=== PATIENT | male | born 1995 | race African-American/Black ===

== ENCOUNTER 2019-09-13 23:38 | Emergency (ER) | payer SELFPAY ==
[2019-09-14] MEDS ORDERED: HYDROCODONE/APAP 5/325 MG TAB ONE (00:14)
[2019-09-14] MEDS ORDERED: CLINDAMYCIN HCL 150 MG CAP ONE (00:14)
--- NOTE | 2019-09-14 00:28 | EDPHYS ---
Physician Documentation [facility] Name: Zac Ramirez Age: 24 yrs Sex: Male : 1995 Arrival Date: 09/13/2019 Time: 23:41 Bed 20 Private MD: ED Physician Bowen Sheikh HPI: 09/14 00:13 This 24 yrs old Black Male presents to ER via Ambulatory with complaints of Dental Pain.snw 00:13 Onset: The symptoms/episode began/occurred suddenly, yesterday. Associated signs and snw symptoms: The patient has no apparent associated signs or symptoms. Modifying factors: The patient symptoms are alleviated by nothing, the patient symptoms are aggravated by drinking. It is unknown whether or not the patient has had similar symptoms in the past. The patient has not recently seen a physician. Pt states the areas have been broken for a while but not painful until yest. Historical: - Allergies: 00:07 PENICILLINS; ea 00:07 Amoxicillin; ea - Home Meds: 00:07 None [Active]; ea - PMHx: 00:07 None; ea - PSHx: 00:07 None; ea - Immunization history:: Adult Immunizations up to date. - Social history:: Smoking status: Patient uses tobacco products, smokes one pack cigarettes per day. - Ebola Screening: : No symptoms or risks identified at this time. ROS: 00:13 Constitutional: Negative for fever, chills, and weight loss, Eyes: Negative for injury, snw pain, redness, and discharge, Neck: Negative for injury, pain, and swelling, Cardiovascular: Negative for chest pain, palpitations, and edema, Respiratory: Negative for shortness of breath, cough, wheezing, and pleuritic chest pain, Abdomen/GI: Negative for abdominal pain, nausea, vomiting, diarrhea, and constipation, Back: Negative for injury and pain, : Negative for injury, bleeding, discharge, and swelling, MS/Extremity: Negative for injury and deformity, Skin: Negative for injury, rash, and discoloration, Neuro: Negative for headache, weakness, numbness, tingling, and seizure. 00:13 ENT: Positive for Teeth pain Exam: 00:12 Constitutional: This is a well developed, well nourished patient who is awake, alert, snw and in no acute distress. Head/Face: Normocephalic, atraumatic. Eyes: Pupils equal round and reactive to light, extra-ocular motions intact. Lids and lashes normal. Conjunctiva and sclera are non-icteric and not injected. Cornea within normal limits. Periorbital areas with no swelling, redness, or edema. Neck: Trachea midline, no thyromegaly or masses palpated, and no cervical lymphadenopathy. Supple, full range of motion without nuchal rigidity, or vertebral point tenderness. No Meningismus. Chest/axilla: Normal chest wall appearance and motion. Nontender with no deformity. No lesions are appreciated. Cardiovascular: Regular rate and rhythm with a normal S1 and S2. No gallops, murmurs, or rubs. Normal PMI, no JVD. No pulse deficits. Respiratory: Lungs have equal breath sounds bilaterally, clear to auscultation and percussion. No rales, rhonchi or wheezes noted. No increased work of breathing, no retractions or nasal flaring. Abdomen/GI: Soft, non-tender, with normal bowel sounds. No distension or tympany. No guarding or rebound. No evidence of tenderness throughout. Back: No spinal tenderness. No costovertebral tenderness. Full range of motion. Skin: Warm, dry with normal turgor. Normal color with no rashes, no lesions, and no evidence of cellulitis. MS/ Extremity: Pulses equal, no cyanosis. Neurovascular intact. Full, normal range of motion. Neuro: Awake and alert, GCS 15, oriented to person, place, time, and situation. Cranial nerves II-XII grossly intact. Motor strength 5/5 in all extremities. Sensory grossly intact. Cerebellar exam normal. Normal gait. Psych: Awake, alert, with orientation to person, place and time. Behavior, mood, and affect are within normal limits. 00:12 ENT: TM's: are normal, Nose: is normal, Mouth: is normal, Dental exam: fractured teeth are noted, specifically the upper left first molar (#14) and lower left first molar (#19), pain, that is moderate. Vital Signs: 00:07 BP 126 / 69; Pulse 62; Resp 18; Temp 98.3; Pulse Ox 99% ; Weight 86.18 kg; Height 5 ft. ea 9 in. (175.26 cm); Pain 8/10; 00:07 Body Mass Index 28.06 (86.18 kg, 175.26 cm) ea MDM: 09/13 23:50 Patient medically screened. snw 09/14 00:29 Data reviewed: vital signs, nurses notes. Data interpreted: Pulse oximetry: on room air snw is 99 %. Interpretation: normal. Counseling: I had a detailed discussion with the patient and/or guardian regarding: the historical points, exam findings, and any diagnostic results supporting the discharge/admit diagnosis, the need for outpatient follow up, to return to the emergency department if symptoms worsen or persist or if there are any questions or concerns that arise at home. Special discussion: Based on the history and exam findings, there is no indication for further emergent testing or inpatient evaluation. I discussed with the patient/guardian the need to see a dentist for further evaluation of the symptoms. I discussed with the patient/guardian the need to see the primary care provider for further evaluation of the symptoms. Administered Medications: 00:14 Not Given (Allergy): Amoxicillin 500 mg PO once 00:14 Drug: Clindamycin 300 mg Route: PO; 00:46 Follow up: Response: No adverse reaction 00:15 Drug: [place] 5 mg-325 mg 1 tabs Route: PO; 00:40 Follow up: Response: No adverse reaction 00:46 Follow up: Response: No adverse reaction; Pain is decreased; RASS: Alert and Calm (0) Disposition: 08:45 Co-signature as Attending Physician, Bowen Sheikh MD I agree with the assessment and wa plan of care. Disposition: 09/14/19 00:27 Discharged to Home. Impression: Dental caries, Dentalgia. - Condition is Stable. - Discharge Instructions: Dental Caries, Adult, Dental Pain, Diet and Dental Disease, Preventive Dental Care, Adult. - Prescriptions for Clindamycin HCl 300 mg Oral Capsule - take 1 capsule by ORAL route every 6 hours for 10 days; 40 capsule. Diclofenac Sodium 75 mg Oral Tablet Sustained Release - take 1 tablet by ORAL route 2 times per day; 30 tablet. - Work release form, Medication Reconciliation Form, Thank You Letter, Antibiotic Education, Prescription Opioid Use form. - Follow up: Private Physician; When: 1 - 2 days; Reason: Recheck today's complaints, Continuance of care, Re-evaluation by your physician. Follow up: Emergency Department; When: As needed; Reason: Worsening of condition. Signatures: Sabra Villeda, LEVAR-C EP TECH-Csnw Krystle Huerta RN RN ea Habalo, Winsy wh Appiah, William, MD MD wa Corrections: (The following items were deleted from the chart) 00:46 00:27 09/14/2019 00:27 Discharged to Home. Impression: Dental caries; Dentalgia. Condition is Stable. Forms are Medication Reconciliation Form, Thank You Letter, Antibiotic Education, Prescription Opioid Use. Follow up: Private Physician; When: 1 - 2 days; Reason: Recheck today's complaints, Continuance of care, Re-evaluation by your physician. Follow up: Emergency Department; When: As needed; Reason: Worsening of condition. snw
--- NOTE | 2019-09-14 00:28 | ER ---
Nurse's Notes [facility] Name: Zac Ramirez Age: 24 yrs Sex: Male : 1995 Arrival Date: 09/13/2019 Time: 23:41 Bed 20 Private MD: Diagnosis: Dental caries;Dentalgia Presentation: 09/14 00:04 Presenting complaint: Patient states: Reports the top and bottom teeth on the left side ea are hurting. Pt reports they have been hurting for the past two years on and off and today the pain was not resolved with Advil. Transition of care: patient was not received from another setting of care. Onset of symptoms was September 14, 2019. Risk Assessment: Do you want to hurt yourself or someone else? Patient reports no desire to harm self or others. Initial Sepsis Screen: Does the patient meet any 2 criteria? No. Patient's initial sepsis screen is negative. Does the patient have a suspected source of infection? No. Patient's initial sepsis screen is negative. Care prior to arrival: None. 00:04 Method Of Arrival: Ambulatory ea 00:04 Acuity: RHONDA 5 ea Historical: - Allergies: 00:07 PENICILLINS; ea 00:07 Amoxicillin; ea - Home Meds: 00:07 None [Active]; ea - PMHx: 00:07 None; ea - PSHx: 00:07 None; ea - Immunization history:: Adult Immunizations up to date. - Social history:: Smoking status: Patient uses tobacco products, smokes one pack cigarettes per day. - Ebola Screening: : No symptoms or risks identified at this time. Screenin:05 Abuse screen: Denies threats or abuse. Nutritional screening: No deficits noted. ea Tuberculosis screening: No symptoms or risk factors identified. Fall Risk None identified. Assessment: 00:10 General: Appears in no apparent distress. Behavior is calm, cooperative, appropriate wh for age. Pain: Complains of pain in Left jaw Pain does not radiate. Pain currently is 8 out of 10 on a pain scale. Quality of pain is described as aching. Neuro: Level of Consciousness is awake, alert, obeys commands, Oriented to person, place, time, situation, Appropriate for age. Cardiovascular: Capillary refill < 3 seconds. Respiratory: Airway is patent Respiratory effort is even, unlabored, Respiratory pattern is regular, symmetrical. GI: Abdomen is flat, non-distended. : No signs and/or symptoms were reported regarding the genitourinary system. EENT: Dental Carries. Derm: Skin is intact, is healthy with good turgor, Skin is pink, warm \T\ dry. normal. Musculoskeletal: Circulation, motion, and sensation intact. 00:41 Reassessment: Patient and/or family updated on plan of care and expected duration. Pain ea level reassessed. Patient is alert, oriented x 3, equal unlabored respirations, skin warm/dry/pink. Discharge instruction given to patient, verbalized the understanding of instruction. Pt left ED ambulatory, pt tolerating well. Vital Signs: 00:07 BP 126 / 69; Pulse 62; Resp 18; Temp 98.3; Pulse Ox 99% ; Weight 86.18 kg; Height 5 ft. ea 9 in. (175.26 cm); Pain 05/14; 00:07 Body Mass Index 28.06 (86.18 kg, 175.26 cm) ea ED Course: 09/13 23:41 Patient arrived in ED. ds1 23:44 Sabra Villeda F[facility]C [facility]. snw 23:44 Bowen Sheikh MD is Attending Physician. snw 09/14 00:05 Triage completed. ea 00:05 Arm band placed on right wrist. Patient placed in an exam room, on a stretcher, on ea pulse oximetry. 00:08 Patient has correct armband on for positive identification. Call light in reach. Side ea rails up X2. 00:14 Khadar Cline is Primary Nurse. wh 00:43 No provider procedures requiring assistance completed. Patient did not have IV access ea during this emergency room visit. Administered Medications: 00:14 Not Given (Allergy): Amoxicillin 500 mg PO once wh 00:14 Drug: Clindamycin 300 mg Route: PO; 00:46 Follow up: Response: No adverse reaction wh 00:15 Drug: [place] 5 mg-325 mg 1 tabs Route: PO; wh 00:40 Follow up: Response: No adverse reaction ea 00:46 Follow up: Response: No adverse reaction; Pain is decreased; RASS: Alert and Calm (0) Outcome: 00:27 Discharge ordered by . snw 00:42 Discharged to home ambulatory. ea 00:42 Condition: stable 00:42 Discharge instructions given to patient, Instructed on discharge instructions, follow up and referral plans. medication usage, Demonstrated understanding of instructions, follow-up care, medications, Prescriptions given X 2. 00:46 Patient left the ED. Signatures: Sabra Villeda, SEO INTERN-C SEO INTERN-Csnw Elizabeth Centeno ds1 Krystle Huerta, RN RN Khadar Lowery
[2019-09-14 01:11] VITALS: BP 126/69; TEMP 98.3; O2SAT 99
== END 2019-09-14 00:46 | disposition home or self-care (01) ==
LOC: ER 23:38
DX: K02.9 Dental caries, unspecified (principal); F17.210 Nicotine dependence, cigarettes, uncomplicated; Z88.0 Allergy status to penicillin; Z88.1 Allergy status to other antibiotic agents
CPT/HCPCS: 99283

== ENCOUNTER 2020-04-11 03:10 | Emergency (ER) | payer SELFPAY ==
--- NOTE | 2020-04-11 03:35 | ER ---
Nurse's Notes [facility] Name: Zac Ramirez Age: 24 yrs Sex: Male : 1995 Arrival Date: 04/11/2020 Time: 03:10 Bed 7 Private MD: Diagnosis: Dental caries Presentation: 04/11 03:23 Chief complaint: Patient states: Reports tooth pain on the right top and bottom teeth ea that started two days ago. Coronavirus screen: Proceed with normal triage. Ebola Screen: No symptoms or risks identified at this time. Initial Sepsis Screen: Does the patient meet any 2 criteria? No. Patient's initial sepsis screen is negative. Does the patient have a suspected source of infection? No. Patient's initial sepsis screen is negative. Risk Assessment: Do you want to hurt yourself or someone else? Patient reports no desire to harm self or others. Onset of symptoms was April 11, 2020. 03:23 Method Of Arrival: Ambulatory ea 03:23 Acuity: RHONDA 3 ea Triage Assessment: 03:26 General: Appears in no apparent distress. Behavior is appropriate for age. Pain: ea Complains of pain in upper right third molar, upper right second molar, upper right first molar, lower right first molar, lower right second molar and lower right third molar. EENT: Reports pain in right side of head. Historical: - Allergies: 03:27 Amoxicillin; ea 03:27 PENICILLINS; ea - PSHx: 03:27 None; ea - Immunization history:: Adult Immunizations up to date. - Social history:: Smoking status: Patient reports the use of cigarette tobacco products, smokes one-half pack cigarettes per day. Screenin:25 Abuse screen: Denies threats or abuse. Nutritional screening: No deficits noted. ea Tuberculosis screening: No symptoms or risk factors identified. Fall Risk None identified. Vital Signs: 03:23 BP 119 / 68; Pulse 65; Resp 18; Temp 98.6; Pulse Ox 97% ; Weight 80.74 kg; Height 5 ft. ea 9 in. (175.26 cm); 03:23 Body Mass Index 26.29 (80.74 kg, 175.26 cm) ea ED Course: 03:10 Patient arrived in ED. ds1 03:14 Juan Vera MD is Attending Physician. tw4 03:23 Huerta, Krystle, RN is Primary Nurse. ea 03:25 Triage completed. ea 03:25 Patient has correct armband on for positive identification. Call light in reach. ea 03:26 Arm band placed on right wrist. Patient placed in an exam room, on a stretcher, on ea pulse oximetry. 03:27 No provider procedures requiring assistance completed. Patient did not have IV access ea during this emergency room visit. Administered Medications: No medications were administered Outcome: 03:27 Medical screen evaluation completed per provider. Patient declined treatment. ea 03:27 Condition: stable 03:27 Following a medical screening exam, the patient was provided information regarding alternative care sites and resources available per registration personnel. 03:34 Discharge ordered by . tw4 03:34 Patient left the ED. ea Signatures: Elizabeth Centeno ds1 Krystle Huerta, CYNDI RN Juan Brown MD MD tw4
--- NOTE | 2020-04-11 03:35 | EDPHYS ---
Physician Documentation [facility] Name: Zac Ramirez Age: 24 yrs Sex: Male : 1995 Arrival Date: 04/11/2020 Time: 03:10 Bed 7 Private MD: ED Physician Juan Vera HPI: 04/11 06:16 This 24 yrs old Black Male presents to ER via Ambulatory with complaints of Toothache. tw4 06:16 The patient presents with pain. The problem is located in the upper right third molar, tw4 upper right second molar, lower right first molar and lower right second molar. 06:16 Onset: The symptoms/episode began/occurred 2 day(s) ago. Duration: The symptoms are tw4 continuous. Modifying factors: The symptoms are alleviated by nothing, the symptoms are aggravated by nothing. Severity of symptoms: At their worst the symptoms were moderate, in the emergency department the symptoms. The patient has not experienced similar symptoms in the past. Historical: - Allergies: 03:27 Amoxicillin; ea 03:27 PENICILLINS; ea - PSHx: 03:27 None; ea - Immunization history:: Adult Immunizations up to date. - Social history:: Smoking status: Patient reports the use of cigarette tobacco products, smokes one-half pack cigarettes per day. ROS: 06:16 Constitutional: Negative for fever, chills, and weight loss, Eyes: Negative for injury, tw4 pain, redness, and discharge. 06:16 Cardiovascular: Negative for chest pain, palpitations, and edema, Respiratory: Negative for shortness of breath, cough, wheezing, and pleuritic chest pain, Abdomen/GI: Negative for abdominal pain, nausea, vomiting, diarrhea, and constipation, Back: Negative for injury and pain, MS/Extremity: Negative for injury and deformity, Skin: Negative for injury, rash, and discoloration, Neuro: Negative for headache, weakness, numbness, tingling, and seizure. 06:16 ENT: Positive for dental pain, Negative for drainage from ear(s), ear pain, foreign body sensation, hearing loss. Exam: 06:16 Constitutional: This is a well developed, well nourished patient who is awake, alert, tw4 and in no acute distress. Head/Face: Normocephalic, atraumatic. 06:16 ENT: Dental exam: fractured teeth are noted, specifically the lower right first molar (#30) and lower right second molar (#31), missing teeth, specifically the lower right third molar (#32), pain, specifically in the upper right third molar (#1), upper right second molar (#2), lower right first molar (#30) and lower right second molar (#31). Vital Signs: 03:23 BP 119 / 68; Pulse 65; Resp 18; Temp 98.6; Pulse Ox 97% ; Weight 80.74 kg; Height 5 ft. ea 9 in. (175.26 cm); 03:23 Body Mass Index 26.29 (80.74 kg, 175.26 cm) ea MDM: 03:14 Patient medically screened. tw4 03:34 Data reviewed: vital signs, nurses notes. Medical screen evaluation completed. EMTALA tw4 emergency medical condition absent. Administered Medications: No medications were administered Disposition: 04/11/20 03:34 Discharged to Home. Impression: Dental caries. - Condition is Stable. - Discharge Instructions: Dental Pain. - Medication Reconciliation Form, Thank You Letter, Antibiotic Education, Prescription Opioid Use form. - Follow up: Private Physician; When: Upon discharge from the Emergency Department; Reason: Recheck today's complaints, Continuance of care, Re-evaluation by your physician. - Problem is new. - Symptoms are unchanged. Signatures: Krystle Huerta, RN RN Juan Brown MD MD tw4 Corrections: (The following items were deleted from the chart) 03:34 03:34 04/11/2020 03:34 Discharged to Home. Impression: Dental caries. Condition is ea Stable. Forms are Medication Reconciliation Form, Thank You Letter, Antibiotic Education, Prescription Opioid Use. Follow up: Private Physician; When: Upon discharge from the Emergency Department; Reason: Recheck today's complaints, Continuance of care, Re-evaluation by your physician. Problem is new. Symptoms are unchanged. tw4
[2020-04-11 03:57] VITALS: BP 119/68; TEMP 98.6; O2SAT 97
== END 2020-04-11 03:34 | disposition home or self-care (01) ==
LOC: ER 03:10
DX: K02.9 Dental caries, unspecified (principal); F17.210 Nicotine dependence, cigarettes, uncomplicated; Z88.0 Allergy status to penicillin; Z88.1 Allergy status to other antibiotic agents
CPT/HCPCS: 99282

== ENCOUNTER 2022-01-11 01:34 | Emergency (ER) | payer SELFPAY ==
--- NOTE | 2022-01-11 02:13 | ER ---
Nurse's Notes [facility] Name: Zac Ramirez Age: 26 yrs Sex: Male : 1995 Arrival Date: 01/11/2022 Time: 01:38 Bed 19 Private MD: Diagnosis: rhinorrhea;sore throat;cough Presentation: 01/11 01:45 Chief complaint: Patient states: Pt c/o nasal congestion, sneezing, and cough, states ll3 "I can't breath through my nose and I'm scared to sleep". Coronavirus screen: Vaccine status: Patient reports being unvaccinated. congestion, cough unrelated to allergies. Ebola Screen: No symptoms or risks identified at this time. Initial Sepsis Screen: Does the patient meet any 2 criteria? No. Patient's initial sepsis screen is negative. Does the patient have a suspected source of infection? No. Patient's initial sepsis screen is negative. Risk Assessment: Do you want to hurt yourself or someone else? Patient reports no desire to harm self or others. Onset of symptoms was January 08, 2022. Care prior to arrival: Medication(s) given: Benedryl, states it didn't help. 01:45 Method Of Arrival: Ambulatory ll3 01:45 Acuity: RHONDA 4 ll3 Triage Assessment: 01:49 General: Appears uncomfortable, Behavior is calm, cooperative. Pain: Denies pain. ll3 Neuro: Level of Consciousness is awake, alert, obeys commands, Oriented to person, place, time, situation. Cardiovascular: Patient's skin is warm and dry. Respiratory: Respiratory effort is even, unlabored, Respiratory pattern is regular, symmetrical. Derm: Skin is pink, warm \\T\\ dry. Historical: - Allergies: 01:49 Amoxicillin; ll3 01:49 PENICILLINS; ll3 - Home Meds: 01:49 None [Active]; ll3 - PMHx: 01:49 None; ll3 - PSHx: 01:49 None; ll3 - Immunization history:: Client reports having NOT received the Covid vaccine. - Social history:: Smoking status: Patient reports the use of cigarette tobacco products, Reported history of juuling and/or vaping. Screenin:13 Abuse screen: Denies threats or abuse. Nutritional screening: No deficits noted. ke1 Tuberculosis screening: No symptoms or risk factors identified. Fall Risk None identified. Vital Signs: 01:45 BP 147 / 87; Pulse 64; Temp 97.6(TE); Pulse Ox 98% on R/A; Weight 83.01 kg (R); Height ll3 5 ft. 9 in. (175.26 cm) (R); 01:45 Body Mass Index 27.02 (83.01 kg, 175.26 cm) ll3 ED Course: 01:38 Patient arrived in ED. kz 01:49 Puneet Isidro DO is Attending Physician. ms3 01:49 Triage completed. ll3 01:49 Arm band placed on Patient placed in an exam room, on a stretcher, on pulse oximetry. ll3 01:49 Bed in low position. ke1 01:59 Arlene Ponce, CYNDI is Primary Nurse. ke1 02:12 Jhonathan Trimble MD is Referral Physician. ms3 02:13 No provider procedures requiring assistance completed. Patient did not have IV access ke1 during this emergency room visit. Administered Medications: No medications were administered Outcome: 02:13 Discharge ordered by . ms3 02:13 Discharged to home ambulatory. ke1 02:13 Condition: good 02:13 Discharge instructions given to patient. 02:22 Patient left the ED. ll3 Signatures: Puneet Isidro DO DO ms3 Shaylee Norman, RN RN ll3 Arlene Ponce RN RN ke1 Myriam Todd k
[2022-01-11 08:52] VITALS: BP 147/87; TEMP 97.6; O2SAT 98
--- NOTE | 2022-01-12 06:14 | EDPHYS ---
Physician Documentation [facility] Name: Zac Ramirez Age: 26 yrs Sex: Male : 1995 Arrival Date: 01/11/2022 Time: 01:38 Bed 19 Private MD: ED Physician Puneet Isidro HPI: 01/11 02:57 This 26 yrs old Black Male presents to ER via Ambulatory with complaints of Nasal ms3 Congestion, Cough. 02:57 The patient or guardian reports Congestion. Onset: The symptoms/episode began/occurred ms3 4 day(s) ago. Severity of symptoms: At their worst the symptoms were moderate, in the emergency department the symptoms have resolved. Modifying factors: The symptoms are alleviated by nothing, the symptoms are aggravated by Laying down. Associated signs and symptoms: Pertinent positives: rhinorrhea, sore throat. 26-year-old male with no past medical history presents for congestion that has been ongoing for 4 days. Patient denies pain. Patient states his symptoms become worse when laying flat. Patient states he took a cough medication and Benadryl without relief. Patient denies alleviating factors. Patient denies fevers, chills, nausea, vomiting. Historical: - Allergies: 01:49 Amoxicillin; ll3 01:49 PENICILLINS; ll3 - Home Meds: 01:49 None [Active]; ll3 - PMHx: 01:49 None; ll3 - PSHx: 01:49 None; ll3 - Immunization history:: Client reports having NOT received the Covid vaccine. - Social history:: Smoking status: Patient reports the use of cigarette tobacco products, Reported history of juuling and/or vaping. ROS: 02:57 Constitutional: Negative for fever, and chills. Eyes: Negative for injury, pain, ms3 redness, and discharge, Neck: Negative for injury, pain, and swelling, Cardiovascular: Negative for chest pain, and palpitations. Abdomen/GI: Negative for abdominal pain, nausea, vomiting, diarrhea, and constipation, MS/Extremity: Negative for injury and deformity, Skin: Negative for injury, rash, and discoloration, Neuro: Negative for headache, weakness, numbness, tingling. 02:57 ENT: Positive for nasal discharge, rhinorrhea, sinus congestion, sore throat. 02:57 Respiratory: Positive for cough. 02:57 All other systems are negative. Exam: 02:57 Constitutional: This is a well developed, well nourished patient who is awake, alert, ms3 and in no acute distress. Head/Face: Normocephalic, atraumatic. Eyes: Pupils equal round and reactive to light, extra-ocular motions intact. Lids and lashes normal. Conjunctiva and sclera are non-icteric and not injected. Periorbital areas with no swelling, redness, or edema. Neck: Trachea midline, no cervical lymphadenopathy. Supple, full range of motion without nuchal rigidity, or vertebral point tenderness. No Meningismus. Chest/axilla: Normal chest wall appearance and motion. Nontender with no deformity. Cardiovascular: Regular rate and rhythm with a normal S1 and S2. No gallops, murmurs, or rubs. Normal PMI, no JVD. No pulse deficits. Respiratory: Lungs have equal breath sounds bilaterally, clear to auscultation and percussion. No rales, rhonchi or wheezes noted. No increased work of breathing, no retractions or nasal flaring. Abdomen/GI: Soft, non-tender, with normal bowel sounds. No distension or tympany. No guarding or rebound. No evidence of tenderness throughout. Skin: Warm, dry with normal turgor. Normal color with no rashes, no lesions, and no evidence of cellulitis. MS/ Extremity: Pulses equal, no cyanosis. Neurovascular intact. Full, normal range of motion. Psych: Awake, alert, with orientation to person, place and time. Behavior, mood, and affect are within normal limits. 02:57 ENT: Nose: Nasal mucosa: edematous, nasal drainage, that is minimal, and is seen coming from both nares, that is clear, Posterior pharynx: is normal. Vital Signs: 01:45 BP 147 / 87; Pulse 64; Temp 97.6(TE); Pulse Ox 98% on R/A; Weight 83.01 kg (R); Height ll3 5 ft. 9 in. (175.26 cm) (R); 01:45 Body Mass Index 27.02 (83.01 kg, 175.26 cm) ll3 MDM: 01:55 Patient medically screened. ms3 02:57 Differential Diagnosis: Influenza Upper Respiratory Infection Sinusitis. Data reviewed: ms3 vital signs, nurses notes. Data interpreted: Pulse oximetry: on room air is 98 %. Interpretation: normal. Counseling: I had a detailed discussion with the patient and/or guardian regarding: the historical points, exam findings, and any diagnostic results supporting the discharge/admit diagnosis, the need for outpatient follow up, to return to the emergency department if symptoms worsen or persist or if there are any questions or concerns that arise at home. ED course: Discussed physical exam findings with patient. Patient to follow-up with primary care physician in 2 to 3 days. Patient understands agrees with plan. All questions were answered. Return precautions discussed include worsening symptoms, or any other concerns.. Administered Medications: No medications were administered Disposition Summary: 01/11/22 02:13 Discharge Ordered Location: Home ms3 Condition: Stable ms3 Diagnosis - rhinorrhea ms3 - sore throat ms3 - cough ms3 Followup: ms3 - With: Jhonathan Trimble MD - When: 2 - 3 days - Reason: Recheck today's complaints Discharge Instructions: - Discharge Summary Sheet ms3 - Allergies, Adult, [id number] ms3 Forms: - Medication Reconciliation Form ms3 - Thank You Letter ms3 - Antibiotic Education ms3 - Prescription Opioid Use ms3 Prescriptions: - FLONASE - spray 2 spray by INTRANASAL route once daily; 120 spray; Refills: 0, Product ms3 Selection Permitted - Claritin 10 mg Oral Tablet - take 1 tablet by ORAL route once daily As needed; 30 tablet; Refills: 0, ms3 Product Selection Permitted Signatures: Puneet Isidro DO DO ms3 Shaylee Norman RN RN ll3
== END 2022-01-11 02:22 | disposition home or self-care (01) ==
LOC: ER 01:34
DX: R05.9 Cough, unspecified (principal); J20.9 Acute bronchitis, unspecified; J34.89 Other specified disorders of nose and nasal sinuses; Z88.0 Allergy status to penicillin; Z88.1 Allergy status to other antibiotic agents
CPT/HCPCS: 99282

== ENCOUNTER 2022-03-26 09:59 | Emergency (ER) | payer SELFPAY ==
--- NOTE | 2022-03-26 11:44 | ER ---
Nurse's Notes [facility] Name: Zac Ramirze Age: 26 yrs Sex: Male : 1995 Arrival Date: 03/26/2022 Time: 10:04 Bed 12 Private MD: Diagnosis: SARS-associated coronavirus as the cause of diseases classified elsewhere Presentation: 03/26 10:16 Chief complaint: Patient states: fever, Headache and body aches that began yesterday. ss Coronavirus screen: Client denies travel out of the [place] in the last 14 days. Ebola Screen: Patient denies exposure to infectious person. Patient denies travel to an Ebola-affected area in the 21 days before illness onset. Initial Sepsis Screen: Does the patient meet any 2 criteria? No. Patient's initial sepsis screen is negative. Does the patient have a suspected source of infection? No. Patient's initial sepsis screen is negative. Risk Assessment: Do you want to hurt yourself or someone else? Patient reports no desire to harm self or others. Onset of symptoms was March 25, 2022. 10:16 Method Of Arrival: Ambulatory ss 10:16 Acuity: RHONDA 4 ss Triage Assessment: 12:00 Headache History: The patient has had previous headaches and this one is similar to iw previous episodes. General: Appears in no apparent distress. General: Appears Behavior is calm, cooperative. Neuro: No deficits noted. Historical: - Allergies: 10:16 Amoxicillin; ss 10:16 PENICILLINS; ss - Immunization history:: Client reports having NOT received the Covid vaccine. - Social history:: Smoking status: Patient reports the use of cigarette tobacco products, smokes one-half pack cigarettes per day. - Family history:: not pertinent. - Hospitalizations: : No recent hospitalization is reported. Screenin:06 Abuse screen: Denies threats or abuse. Denies injuries from another. Nutritional iw screening: No deficits noted. Tuberculosis screening: No symptoms or risk factors identified. Fall Risk None identified. Assessment: 12:07 Reassessment: Patient appears in no apparent distress at this time. No changes from iw previously documented assessment. Vital Signs: 10:16 BP 124 / 67; Pulse 79; Resp 14; Temp 98.9(O); Pulse Ox 100% on R/A; Pain 5/10; ss ED Course: 10:04 Patient arrived in ED. [email or web address] 10:16 Arm band placed on right wrist. ss 10:24 Carl Leiva MD is Attending Physician. rn 10:24 Triage completed. 11:41 Carolina Sunshine RN is Primary Nurse. iw 12:07 No provider procedures requiring assistance completed. Patient did not have IV access iw during this emergency room visit. Administered Medications: No medications were administered Medication: 16:16 VIS not applicable for this client. iw Outcome: 11:43 Discharge ordered by . rn 12:07 Discharged to home ambulatory. iw 12:07 Condition: good 12:07 Discharge instructions given to patient, Instructed on discharge instructions, follow up and referral plans. Demonstrated understanding of instructions, follow-up care. 12:07 Patient left the ED. iw Signatures: Carolina Sunshine RN RN Carl Leiva MD MD rn Smirch, Shelby, RN RN ss Garcia, Rubi rg4
--- NOTE | 2022-03-26 11:44 | EDPHYS ---
Physician Documentation [facility] Name: Zac Ramirez Age: 26 yrs Sex: Male : 1995 Arrival Date: 03/26/2022 Time: 10:04 Bed 12 Private MD: ED Physician Carl Leiva HPI: 03/26 10:58 This 26 yrs old Black Male presents to ER via Ambulatory with complaints of Headache, rn myalgia. 10:58 The patient complains of pain to the . rn 10:59 The patient reports fever, not measured (subjective). Onset: The symptoms/episode rn began/occurred yesterday. Modifying factors: there are no obvious modifying factors. Associated signs and symptoms: Pertinent positives: chills, headache, myalgias, Pertinent negatives: abdominal pain, chest pain, diarrhea, hemoptysis, skin rash, shortness of breath, sore throat, swelling, vomiting. Severity of symptoms: At their worst the symptoms were mild in the emergency department the symptoms are unchanged. The patient has not experienced similar symptoms in the past. The patient has not recently seen a physician. Pt reports subjective fever, chills, myalgias, headache, fatigue since yesterday. No known sick contacts. . Historical: - Allergies: 10:16 Amoxicillin; ss 10:16 PENICILLINS; ss - Immunization history:: Client reports having NOT received the Covid vaccine. - Social history:: Smoking status: Patient reports the use of cigarette tobacco products, smokes one-half pack cigarettes per day. - Family history:: not pertinent. - Hospitalizations: : No recent hospitalization is reported. ROS: 10:59 Constitutional: + fever and chills Eyes: Negative for injury, pain, redness, and employee benefits attorney, ENT: Negative for injury, pain, and discharge, Neck: Negative for injury, pain, and swelling, Cardiovascular: Negative for chest pain, palpitations, and edema, Respiratory: Negative for shortness of breath, cough, wheezing, and pleuritic chest pain, Abdomen/GI: Negative for abdominal pain, nausea, vomiting, diarrhea, and constipation, Back: Negative for injury and pain, MS/Extremity: Negative for injury and deformity, Skin: Negative for injury, rash, and discoloration, Neuro: Negative for numbness, tingling, and seizure. Exam: 10:59 Constitutional: This is a well developed, well nourished patient who is awake, alert, rn and in no acute distress. Head/Face: Normocephalic, atraumatic. Eyes: Periorbital areas with no swelling, redness, or edema. ENT: MMM Neck: Trachea midline, no masses palpated, and no cervical lymphadenopathy. Supple, full range of motion without nuchal rigidity, or vertebral point tenderness. No Meningismus. Cardiovascular: Regular rate and rhythm. No pulse deficits. Respiratory: No increased work of breathing, no retractions or nasal flaring. Abdomen/GI: Soft, non-tender Skin: Warm, dry MS/ Extremity: Pulses equal, no cyanosis. Neuro: Awake and alert, GCS 15, oriented to person, place, time, and situation. Cranial nerves II-XII grossly intact. Motor strength 5/5 in all extremities. Sensory grossly intact. Cerebellar exam normal. Normal gait. Vital Signs: 10:16 BP 124 / 67; Pulse 79; Resp 14; Temp 98.9(O); Pulse Ox 100% on R/A; Pain 5/10; ss MDM: 10:24 Patient medically screened. rn 11:43 Differential diagnosis: viral Infection, bacterial infection, URI. Data reviewed: vital rn signs, nurses notes, lab test result(s), and as a result, I will discharge patient. Counseling: I had a detailed discussion with the patient and/or guardian regarding: the historical points, exam findings, and any diagnostic results supporting the discharge/admit diagnosis, lab results, the need for outpatient follow up, to return to the emergency department if symptoms worsen or persist or if there are any questions or concerns that arise at home. Special discussion: I discussed with the patient/guardian in detail that at this point there is no indication for admission to the hospital. It is understood, however, that if the symptoms persist or worsen the patient needs to return immediately for re-evaluation. 03/26 10:25 Order name: Flu; Complete Time: : ss 03/26 10:25 Order name: COVID-19 SARS RT PCR (Document "Date of Onset" if Symptomatic); Complete ss Time: 03/26 10:25 Order name: Flu rn 03/26 10:25 Order name: SARS-COV-2 RT PCR (Document "Date of Onset" if Symptomatic) rn 03/26 10:25 Order name: Strep; Complete Time: 11:43 rn 03/26 11:14 Order name: Throat Culture EDMS Administered Medications: No medications were administered Disposition Summary: 03/26/22 11:43 Discharge Ordered Location: Home rn Problem: new rn Symptoms: have improved rn Condition: Stable rn Diagnosis - SARS-associated coronavirus as the cause of diseases classified elsewhere rn Followup: rn - With: Private Physician - When: As needed - Reason: Recheck today's complaints, Re-evaluation by your physician Discharge Instructions: - Discharge Summary Sheet rn - COVID-19 rn - 10 Things You Can Do to Manage Your COVID-19 Symptoms at Home - [facility] [place] rn - Viral Illness, Adult rn - Prevent the Spread of COVID-19 if You Are Sick - [facility] [place] rn Forms: - Work release form iw - Medication Reconciliation Form rn - Thank You Letter rn - Antibiotic recording studio internship - Prescription Opioid Use rn Signatures: Dispatcher [employer] Carl Gonzalez MD MD rn Smirch, Shelby, RN RN ss
[2022-03-26 12:13] VITALS: BP 124/67; TEMP 98.9; O2SAT 100
== END 2022-03-26 12:07 | disposition home or self-care (01) ==
LOC: ER 09:59
DX: U07.1 COVID-19 (principal); F17.210 Nicotine dependence, cigarettes, uncomplicated; Z88.1 Allergy status to other antibiotic agents; Z88.0 Allergy status to penicillin
CPT/HCPCS: 87070; 87081; 87804; 99281; U0003

== ENCOUNTER 2023-02-11 15:29 | Emergency (ER) | payer SELFPAY ==
[2023-02-11] MEDS ORDERED: TETRACAINE HCL 0.5% 4ML OPTH ONE (15:57)
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
[2023-02-11] MEDS ORDERED: ACETAMINOPHEN 500 MG TAB ONE (17:09)
[2023-02-11] MEDS ORDERED: DERMABOND SKIN ADHESIVE TOP ONE (17:09)
[2023-02-11] MEDS ORDERED: TETANUS & DIPHTHERIA TOX,ADULT 0.5 ML VIAL ONE (17:10)
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
[2023-02-11 18:13] VITALS: TEMP 98; O2SAT 98
[2023-02-11 18:14] VITALS: BP 114/76
== END 2023-02-11 17:43 | disposition home or self-care (01) ==
LOC: ER 15:29
DX: H21.01 Hyphema, right eye (principal); S01.81XA Laceration without foreign body of other part of head, initial encounter; R51.9 Headache, unspecified; S60.512A Abrasion of left hand, initial encounter; Y09 Assault by unspecified means
CPT/HCPCS: 70450; 70486; 72125; 76377; 90714

== ENCOUNTER 2024-12-09 08:19 | Emergency (ER) | payer SELFPAY ==
--- OUTSIDE RECORDS SUMMARY | 2024-12-09 08:22 | XMS REPORT | Continuity of Care Document ---
Author Name Unknown Address [address] [place] [address] [address] [place] [address] [facility] Address [address] [place] [address] [address] [place] [address] Care Team Providers Care Accounting Reconciliation Clerk Name Role Phone Unavailable Unavailable Unavailable Encounters Start Date/Time End Date/Time Encounter Type Admission Type Attending Clinicians Care Facility Care Department Encounter ID Source 2023-01-12 10:17:46 2023-01-12 10:17:46 Outpatient [facility] [id number] Chavez
[2024-12-09] MEDS ORDERED: AZITHROMYCIN 250 MG TAB ONE (08:30)
--- NOTE | 2024-12-09 09:07 | EDPHYS ---
Physician Documentation [facility] Name: Zac Ramirez Age: 29 yrs Sex: Male : 1995 Arrival Date: 12/09/2024 Time: 08:19 Bed 11 Private MD: ED Physician Robert Mcdonald HPI: 12/09 09:01 This 29 yrs old Black Male presents to ER via Ambulatory with complaints of Sore Throat.shelby 09:01 The patient presents with sore throat. The patient describes throat pain as constant, shelby raw. Onset: The symptoms/episode began/occurred 2 day(s) ago. Severity of symptoms: At their worst the symptoms were moderate, in the emergency department the symptoms are unchanged. Modifying factors: The symptoms are alleviated by nothing. Associated signs and symptoms: The patient has no apparent associated signs or symptoms. The patient has experienced similar episodes in the past, a few times. Historical: - Allergies: 08:24 Amoxicillin; ll1 08:24 PENICILLINS; ll1 - PMHx: 08:27 None; ll1 - PSHx: 08:27 None; ll1 - Immunization history:: Adult Immunizations up to date. - Infectious Disease History:: Denies. - Social history:: Smoking status: Patient denies any tobacco usage or history of. ROS: 09:02 Constitutional: Negative for fever, chills, and weight loss, Eyes: Negative for injury, shelby pain, redness, and discharge, Neck: Negative for injury, pain, and swelling, Cardiovascular: Negative for chest pain, palpitations, and edema, Respiratory: Negative for shortness of breath, cough, wheezing, and pleuritic chest pain, Abdomen/GI: Negative for abdominal pain, nausea, vomiting, diarrhea, and constipation, Back: Negative for injury and pain, : Negative for injury, bleeding, discharge, and swelling, MS/Extremity: Negative for injury and deformity, Skin: Negative for injury, rash, and discoloration, Neuro: Negative for headache, weakness, numbness, tingling, and seizure, Psych: Negative for depression, anxiety, suicide ideation, homicidal ideation, and hallucinations, Allergy/Immunology: Negative for hives, rash, and allergies, Endocrine: Negative for neck swelling, polydipsia, polyuria, polyphagia, and marked weight changes, Hematologic/Lymphatic: Negative for swollen nodes, abnormal bleeding, and unusual bruising, 09:02 ENT: Positive for rhinorrhea, sinus congestion, sore throat, Exam: 09:02 Constitutional: This is a well developed, well nourished patient who is awake, alert, shelby and in no acute distress. Head/Face: Normocephalic, atraumatic. Eyes: Pupils equal round and reactive to light, extra-ocular motions intact. Lids and lashes normal. Conjunctiva and sclera are non-icteric and not injected. Cornea within normal limits. Periorbital areas with no swelling, redness, or edema. Neck: Trachea midline, no thyromegaly or masses palpated, and no cervical lymphadenopathy. Supple, full range of motion without nuchal rigidity, or vertebral point tenderness. No Meningismus. Chest/axilla: Normal chest wall appearance and motion. Nontender with no deformity. No lesions are appreciated. Cardiovascular: Regular rate and rhythm with a normal S1 and S2. No gallops, murmurs, or rubs. Normal PMI, no JVD. No pulse deficits. Respiratory: Lungs have equal breath sounds bilaterally, clear to auscultation and percussion. No rales, rhonchi or wheezes noted. No increased work of breathing, no retractions or nasal flaring. Abdomen/GI: Soft, non-tender, with normal bowel sounds. No distension or tympany. No guarding or rebound. No evidence of tenderness throughout. Back: No spinal tenderness. No costovertebral tenderness. Full range of motion. Male : Normal genitalia with no discharge or lesions. Skin: Warm, dry with normal turgor. Normal color with no rashes, no lesions, and no evidence of cellulitis. MS/ Extremity: Pulses equal, no cyanosis. Neurovascular intact. Full, normal range of motion., bilateral aka Neuro: Awake and alert, GCS 15, oriented to person, place, time, and situation. Cranial nerves II-XII grossly intact. Motor strength 5/5 in all extremities. Sensory grossly intact. Cerebellar exam normal. Normal gait. Psych: Awake, alert, with orientation to person, place and time. Behavior, mood, and affect are within normal limits. 09:02 ENT: Mouth: is normal, no abscess, no drooling, no injury, no laceration, no lesion(s), (-) tongue elevation (-) trismus no ulcerations, Posterior pharynx: Airway: normal, no evidence of obstruction, Tonsils: bilaterally enlarged, with erythema, Uvula: normal, midline, non-edematous, no erythema, swelling, is not appreciated, erythema, that is mild, Vital Signs: 08:27 BP 134 / 78; Pulse 62; Resp 16; Temp 97.4; Pulse Ox 100% ; Pain 8/10; ll1 08:27 Pain Scale: Adult ll1 MDM: 08:25 Medical Screening Exam initiated [facility] 09:04 Differential diagnosis: cocksackie virus, echovirus infection, group A strep shelby tonsillitis, influenza, laryngitis, chlamydia pharyngitis, neisseria gonorrheoeae pharangitis, Mycoplasma Pharyngitis pharyngitis, tonsillitis, uvulitis, viral syndrome. Differential Diagnosis sepsis, flu. Data reviewed: vital signs, nurses notes, lab test result(s). Consideration of Admission/Observation Escalation of care including admission/observation considered. I considered the following discharge prescriptions or medication management in the emergency department Medications were administered in the Emergency Department. See MAR. Test considered but Not performed: Labs: nop cbc , no cmp. Care significantly affected by the following chronic conditions: none. 12/09 08:25 Order name: Group A Streptococcus Rapid [facility] 12/09 08:55 Order name: Throat Culture EDMS Administered Medications: 08:42 Drug: AZITHromycin PO 500 mg PO once Route: PO; ll1 09:12 Follow up: Response: No adverse reaction ll1 Disposition Summary: 12/09/24 09:06 Discharge Ordered Notes: Location: Home [facility] Problem: new [facility] Symptoms: have improved [facility] Condition: Stable [facility] Diagnosis - Acute pharyngitis, unspecified [facility] Followup: [facility] - With: Private Physician - When: 2 - 3 days - Reason: Recheck today's complaints, Continuance of care, Re-evaluation by your physician Discharge Instructions: - Pharyngitis [facility] - Sore Throat [facility] - Pharyngitis, [id number] [facility] - Discharge Summary Sheet ll1 Forms: - Medication Reconciliation Form [facility] - Antibiotic Education [facility] - Prescription Opioid Use [facility] - Patient Portal Instructions [facility] - Leadership Thank You Letter [facility] - Work release form ll1 Prescriptions: - Zithromax 500 mg Oral Tablet - take 1 tablet ORAL route once daily for 5 days; 5 tablet; Refills: 0, Product shelby Selection Permitted Signatures: Dispatcher [employer] Robert Lamar MD MD cha Lewis, Lynsay RN RN ll1
--- NOTE | 2024-12-09 09:07 | ER ---
Nurse's Notes [facility] Name: Zac Ramirez Age: 29 yrs Sex: Male : 1995 Arrival Date: 12/09/2024 Time: 08:19 Bed 11 Private MD: Diagnosis: Acute pharyngitis, unspecified Presentation: 12/09 08:24 Chief complaint: Patient states: Sore throat. Ebola Screen: Patient denies travel to an [facility] Ebola-affected area in the 21 days before illness onset. Initial Sepsis Screen: Does the patient meet any 2 criteria? No. Patient's initial sepsis screen is negative. Does the patient have a suspected source of infection? No. Patient's initial sepsis screen is negative. Risk Assessment: Do you want to hurt yourself or someone else? Patient reports no desire to harm self or others. 08:24 Method Of Arrival: Ambulatory 1 08:24 Acuity: RHONDA 4 ll1 08:27 Coronavirus screen: Client denies travel out of the [place] in the last 14 days. At this 1 time, the client does not indicate any symptoms associated with coronavirus-19. Onset of symptoms was December 07, 2024. Triage Assessment: 08:24 General: Appears in no apparent distress. Behavior is calm, cooperative, appropriate ll1 for age. Pain: Complains of pain in throat Quality of pain is described as aching. EENT: Reports pain when swallowing. Historical: - Allergies: 08:24 Amoxicillin; ll1 08:24 PENICILLINS; ll1 - PMHx: 08:27 None; ll1 - PSHx: 08:27 None; ll1 - Immunization history:: Adult Immunizations up to date. - Infectious Disease History:: Denies. - Social history:: Smoking status: Patient denies any tobacco usage or history of. Screenin:12 [facility] ED Fall Risk Assessment (Adult) History of falling in the last 3 months, ll1 including since admission No falls in past 3 months (0 pts) Confusion or Disorientation No (0 pts) Intoxicated or Sedated No (0 pts) Impaired Gait No (0 pts) Mobility Assist Device Used No (0 pt) Altered Elimination No (0 pt) Score/Fall Risk Level 0 - 2 = Low Risk Maintained a safe environment, Hourly rounding (assess needs \T\ fall precautionary measures) done. Abuse screen: Denies threats or abuse. Nutritional screening: No deficits noted. Tuberculosis screening: No symptoms or risk factors identified. Assessment: 09:12 Reassessment: No changes from previously documented assessment. Patient and/or family ll1 updated on plan of care and expected duration. Pain level reassessed. Patient is alert, oriented x 3, equal unlabored respirations, skin warm/dry/pink. 09:12 Respiratory: Airway is patent Respiratory effort is even, unlabored, Breath sounds are ll1 clear bilaterally. EENT: Throat is reddened Reports pain when swallowing. Vital Signs: 08:27 BP 134 / 78; Pulse 62; Resp 16; Temp 97.4; Pulse Ox 100% ; Pain 8/10; ll1 08:27 Pain Scale: Adult ll1 ED Course: 08:22 Patient arrived in ED. mr 08:24 Arm band placed on. ll1 08:25 Robert Mcdonald MD is Attending Physician. [facility] 08:25 Triage completed. ll1 08:32 Black Brown, CYNDI is Primary Nurse. ll1 08:32 Group A Streptococcus Rapid Sent. ll1 09:12 Patient has correct armband on for positive identification. Provided Education on: ll1 finish all prescribed antibiotics. 09:12 No provider procedures requiring assistance completed. Patient did not have IV access ll1 during this emergency room visit. Administered Medications: 08:42 Drug: AZITHromycin PO 500 mg PO once Route: PO; ll1 09:12 Follow up: Response: No adverse reaction ll1 Medication: 10:22 VIS not applicable for this client. ll1 Outcome: 09:06 Discharge ordered by . [facility] 09:12 Patient left the ED. ll1 09:12 Discharged to home ambulatory, ll1 09:12 Condition: stable 09:12 Discharge instructions given to patient, Instructed on discharge instructions, follow up and referral plans. medication usage, Demonstrated understanding of instructions, follow-up care, medications, Prescriptions given X 1, Signatures: Robert Mcdonald MD MD cha Rivera, Mary, Reg Reg mr Black Brown, RN RN ll1
[2024-12-09 09:15] VITALS: BP 134/78; TEMP 97.4; O2SAT 100
== END 2024-12-09 09:12 | disposition home or self-care (01) ==
LOC: ER 08:19
DX: J02.9 Acute pharyngitis, unspecified (principal)
CPT/HCPCS: 36415; 87070; 99283